=== PATIENT | male | born 1960 | race Caucasian/White ===

== ENCOUNTER → 2019-08-21 | Outpatient (CLI) | payer SELFPAY | LOC: LAB FS 15:57 | PROVIDERS: ATTEND Family Medicine | DX: R63.1 Polydipsia (principal) | CPT/HCPCS: 36415; 84588 ==

== ENCOUNTER 2019-12-20 17:23 | Inpatient (IN) | payer SELFPAY ==
[~2019-12-20] VITALS: Ht 172.7 cm; Wt 59.1 kg
--- NOTE | 2019-12-20 17:24 | ED General ---
General Stated Complaint: SOB History of Present Illness Date Seen by Provider: Dec 20, 2019 Time Seen by Provider: 17:24 Initial Comments Patient is a 59 y/o male who comes to the ER today primarily with constitutional complaints. He states he has been feeling progressively weak and shaky for many weeks. Symptoms worsened significantly over the last several days. He has excessive thirst and now feels too weak to ambulate even about his house. He does not have focal neuro complaints. No chest pain. He does c/o some dyspnea but no cough. No additional viral symptoms. No fever, chills. He does have hx of heavy tobacco use smoking one PPD. No personal hx of DM but his brother does have. 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 He does drink six beers daily but denies hx of etoh w/d symptoms with cessation. Allergies and Home Medications Allergies Coded Allergies: No Known Drug Allergies (Unverified , 12/20/19) Patient Home Medication List Home Medication List Reviewed: Yes Review of Systems Review of Systems Constitutional: chills, dizziness, malaise, weakness EENTM: no symptoms reported Respiratory: dyspnea on exertion Cardiovascular: no symptoms reported Gastrointestinal: loss of appetite Genitourinary: no symptoms reported Musculoskeletal: no symptoms reported Skin: no symptoms reported Psychiatric/Neurological: Tremors, Weakness All Other Systems Reviewed Negative Unless Noted: Yes Physical Exam Vital Signs Vital Signs - First Documented 12/20/19 17:46 Temp 37.4 Pulse 67 Resp 17 B/P (MAP) 155/74 (101) Pulse Ox 100 Capillary Refill : Height, Weight, BMI Height: '" Weight: lbs. oz. kg; BMI Method: General Appearance: Other (thin, ill-appearing male who is tremulous) Eyes: Bilateral Eye Normal Inspection HEENT: PERRL/EOMI, Normal ENT Inspection Neck: Supple Respiratory: Other (few scattered wheezes but no significant decrease air flow.) Cardiovascular: Regular Rate, Rhythm, No Murmur Gastrointestinal: Non Tender, Soft Extremity: Normal Capillary Refill, Other (clubbing of fingernails) Neurologic/Psychiatric: Alert, Oriented x3, Normal Mood/Affect, lapel baster II-XII Norm as Tested, Other (tremulous) Skin: Normal Color Focused Exam Lactate Level 12/20/19 17:53: Lactic Acid Level 7.19*H Lactic Acid Level Laboratory Tests Test 12/20/19 17:53 Lactic Acid Level 7.19 MMOL/L (0.50-2.00) *H Progress/Results/Core Measures Suspected Sepsis SIRS Temperature: Pulse: Respiratory Rate: Laboratory Tests 12/20/19 17:53: White Blood Count 11.1H Blood Pressure / Mean: 12/20/19 17:53: Lactic Acid Level 7.19*H Laboratory Tests 12/20/19 17:53: Creatinine 0.98, Platelet Count 187, Total Bilirubin 0.6 Results/Orders Lab Results Laboratory Tests Test 12/20/19 17:53 12/20/19 18:10 Range/Units White Blood Count 11.1 H 4.3-11.0 10^3/uL Red Blood Count 4.08 L 4.35-5.85 10^6/uL Hemoglobin 15.3 13.3-17.7 G/DL Hematocrit 42 40-54 % Mean Corpuscular Volume 103 H 80-99 FL Mean Corpuscular Hemoglobin 38 H 25-34 PG Mean Corpuscular Hemoglobin Concent 37 H 32-36 G/DL Red Cell Distribution Width 12.8 10.0-14.5 % Platelet Count 187 130-400 10^3/uL Mean Platelet Volume 10.0 7.4-10.4 FL Neutrophils (%) (Auto) 81 H 42-75 % Lymphocytes (%) (Auto) 12 12-44 % Monocytes (%) (Auto) 6 0-12 % Eosinophils (%) (Auto) 0 0-10 % Basophils (%) (Auto) 1 0-10 % Neutrophils # (Auto) 8.9 H 1.8-7.8 X 10^3 Lymphocytes # (Auto) 1.4 1.0-4.0 X 10^3 Monocytes # (Auto) 0.7 0.0-1.0 X 10^3 Eosinophils # (Auto) 0.0 0.0-0.3 10^3/uL Basophils # (Auto) 0.1 0.0-0.1 10^3/uL Sodium Level 130 L 135-145 MMOL/L Potassium Level 4.0 3.6-5.0 MMOL/L Chloride Level 88 L 98-107 MMOL/L Carbon Dioxide Level 18 L 21-32 MMOL/L Anion Gap 24 H 5-14 MMOL/L Blood Urea Nitrogen 16 7-18 MG/DL Creatinine 0.98 0.60-1.30 MG/DL Estimat Glomerular Filtration Rate > 60 BUN/Creatinine Ratio 16 Glucose Level 59 *L 70-105 MG/DL Lactic Acid Level 7.19 *H 0.50-2.00 MMOL/L Calcium Level 9.7 8.5-10.1 MG/DL Corrected Calcium 8.5-10.1 MG/DL Magnesium Level 1.8 1.6-2.4 MG/DL Total Bilirubin 0.6 0.1-1.0 MG/DL Aspartate Amino Transf (AST/SGOT) 126 H 5-34 U/L Alanine Aminotransferase (ALT/SGPT) 61 H 0-55 U/L Alkaline Phosphatase 67 40-136 U/L Troponin I < 0.30 <0.30 NG/ML Pro-B-Type Natriuretic Peptide 114.7 H <75.0 PG/ML Total Protein 7.3 6.4-8.2 GM/DL Albumin 4.8 H 3.2-4.5 GM/DL Serum Alcohol 77 H <10 MG/DL Urine Color YELLOW Urine Clarity CLEAR Urine pH 6.0 5-9 Urine Specific [place] 1.020 1.016-1.022 Urine Protein 2+ H NEGATIVE Urine Glucose (UA) NEGATIVE NEGATIVE Urine Ketones 2+ H NEGATIVE Urine Nitrite NEGATIVE NEGATIVE Urine Bilirubin NEGATIVE NEGATIVE Urine Urobilinogen 0.2 < = 1.0 MG/DL Urine Leukocyte Esterase NEGATIVE NEGATIVE Urine RBC (Auto) TRACE H NEGATIVE Urine RBC NONE /HPF Urine WBC RARE /HPF Urine Squamous Epithelial Cells RARE /HPF Urine Crystals NONE /LPF Urine Bacteria NEGATIVE /HPF Urine Casts PRESENT /LPF Urine Hyaline Casts 0-2 H /LPF Urine Mucus NEGATIVE /LPF Urine Culture Indicated NO My Orders Orders - LEIGHTON ROBLES DO Ed Iv/Invasive Line Start (12/20/19 17:47) Cbc With Automated Diff (12/20/19 17:47) Comprehensive Metabolic Panel (12/20/19 17:47) Lactic Acid Analyzer (12/20/19 17:47) Troponin I Fs (12/20/19 17:47) Ekg Tracing (12/20/19 17:47) Chest 1 View Ap/Pa Only (12/20/19 17:47) Thyroid Stimulating Hormone (12/20/19 17:48) Urinalysis (12/20/19 17:49) Ns Iv 1000 Ml (Sodium Chloride 0.9%) (12/20/19 18:00) Probnp Fs (12/20/19 18:01) Ed Iv/Invasive Line Start (12/20/19 18:22) D5 Ns 1000 Ml Iv Solution (Dextrose 5%/0 (12/20/19 18:30) Alcohol (12/20/19 18:29) Magnesium (12/20/19 18:41) Ns Iv 1000 Ml (Sodium Chloride 0.9%) (12/20/19 19:00) Vital Signs/I&O 12/20/19 17:46 Temp 37.4 Pulse 67 Resp 17 B/P (MAP) 155/74 (101) Pulse Ox 100 Capillary Refill : Progress Note : Time: 16:35 Progress Note Patient is seen and examined. No chest pain. Pt seems mildly dyspneic, particularly with ambulation from the w/r. Improves while at rest. 18:45: Results are reviewed and discussed with the patient. X-rays consistent with COPD but no acute infection. No leukocytosis. Patient has significant derangement of BMP with depressed CO2 and anion gap of 24. Blood glucose level however was low. Patient is noted to have ketones in urine. His presentation is consistent with alcoholic ketoacidosis. His lactic acid is 7.1. During the ED course, the patient is ordered to have a total of 2 L of normal saline as well as 1 L of D5NS as bolus fluids. I spoke to Dr. Herrera who is agreeable to admit the patient to [facility]. Patient is agreeable to the admission plan of care. We will continue aggressive hydration during the ED course. Troponin was not elevated and EKG is normal. Patient takes metoprolol 25 mg daily for control blood pressure. He does not use inhaled type medications for COPD. Despite elevated lactate today, there is no evidence for acute infectious process on his workup. No antibiotics are indicated at this time. ECG Initial ECG Impression Date: Dec 20, 2019 Initial ECG Impression Time: 17:55 Initial ECG Rhythm: Normal Sinus, S.Tej Departure Communication (Admissions) Time/Spoke to Admitting Phy: 18:45 Dr. Herrera Impression Primary Impression: Alcoholic ketoacidosis Disposition: ADMITTED INPATIENT Condition: Improved Admissions Decision to Admit Reason: Admit from ER (General) Decision to Admit/Date: Dec 20, 2019 Time/Decision to Admit Time: 18:40 Departure-Patient Inst. Referrals: SELFDAVID MD (PCP/Family) Primary Care Physician LEIGHTON ROBLES DO Dec 20, 2019 17:24
--- OUTSIDE RECORDS SUMMARY | 2019-12-20 17:28 | XMS REPORT | Continuity of Care Document ---
Author Organization Unknown Address Unknown Phone Unavailable Allergies There is no data. Medications There is no data. Problems Date Dx Coded Attending Type Code Diagnosis Diagnosed By 08/25/2019 SELF DAVID PATHAK Ot R63.1 POLYDIPSIA 12/20/2019 SELF DAVID PATHAK Ot R63.1 POLYDIPSIA Procedures There is no data. Results Test Result Range A1C - 07/21/19 16:04 HEMOGLOBIN A1c 5.6 % of total Hgb <5.7 INSULIN LEVEL - 07/21/19 16:05 INSULIN 5.5 uIU/mL NRG VITAMIN B12 - 08/21/19 15:59 VITAMIN B12 373 pg/mL 200-1100 TSH - 08/21/19 15:59 TSH 1.07 mIU/L 0.40-4.50 VITAMIN B1 (THIAMINE) - 08/21/19 15:59 VITAMIN B1 (THIAMINE), BLOOD, LC/MS/MS 126 nmol/L 78-185 ANTIDIURETIC HORMONE - 08/21/19 16:10 ANTIDIURETIC HORMONE/VASOPRESS <0.5 0.0-6.9 Encounters ACCT No. Visit Date/Time Discharge Status Pt. Type Provider Facility Loc./Unit Complaint [id number] 12/02/2019 13:30:00 12/02/2019 23:59: 59 CLS Outpatient SELFDAVID [facility] [id number] 08/21/2019 14:30:00 Document Registration [id number] 07/21/2019 14:15:00 Document Registration [id number] 12/20/2019 17:24:00 17:24:00 CAN Preadmit LEIGHTON ROBLES DO [facility] ER FS SOB [id number] 08/21/2019 15:57:00 020 23:59:59 CLS Outpatient SELF DAVID PATHAK [facility] LAB FS EXCESSIVE THIRST
--- NOTE | 2019-12-20 17:36 | NUR ---
Per registration staff, patient's came in to register patient. Patient's stated that patient was coming to the ED via EMS. Local EMS has received no calls for this patient. Registration staff states left to go home, stated that her cell phone battery was empty.
[2019-12-20 18:01] LABS: BASOPHILS % (AUTO) 1 % (0-10); EOSINOPHILS % (AUTO) 0 % (0-10); HEMATOCRIT 42 % (40-54); HEMOGLOBIN 15.3 G/DL (13.3-17.7); LYMPHOCYTES % (AUTO) 12 % (12-44); MEAN CORPUSCULAR HEMOGLOBIN 38 PG (25-34); MEAN CORPUSCULAR HGB CONC 37 G/DL (32-36); MEAN CORPUSCULAR VOLUME 103 FL (80-99); MONOCYTES % (AUTO) 6 % (0-12); NEUTROPHILS % (AUTO) 81 % (42-75); PLATELET COUNT 187 10^3/uL (130-400); RED CELL DISTRIBUTION WIDTH 12.8 % (10.0-14.5); WHITE BLOOD COUNT 11.1 10^3/uL (4.3-11.0)
[2019-12-20 18:02] LABS: BASOPHILS # (AUTO) 0.1 10^3/uL (0.0-0.1); LYMPHOCYTES # (AUTO) 1.4 X 10^3 (1.0-4.0); MONOCYTES # (AUTO) 0.7 X 10^3 (0.0-1.0); NEUTROPHILS # (AUTO) 8.9 X 10^3 (1.8-7.8)
--- OUTSIDE RECORDS SUMMARY | 2019-12-20 18:05 | XMS REPORT | Continuity of Care Document ---
Author Organization Unknown Address Unknown Phone Unavailable Allergies There is no data. Medications There is no data. Problems Date Dx Coded Attending Type Code Diagnosis Diagnosed By 08/25/2019 SELF DAVID PATHAK Ot R63.1 POLYDIPSIA 12/20/2019 DAVID VAUGHN MD, Ot R63.1 POLYDIPSIA Procedures There is no [...] Status Pt. Type Provider Facility Loc./Unit Complaint [id number] 12/02/2019 13:30:00 12/02/2019 23:59: 59 CLS Outpatient DAVID VAUGHN [facility] [id number] 08/21/2019 14:30:00 Document Registration [id number] 07/21/2019 14:15:00 Document Registration [id number] 08/21/2019 15:57:00 020 23:59:59 CLS Outpatient SELF DAVID PATHAK [facility] LAB FS EXCESSIVE THIRST [id number] 12/20/2019 18:01:[address] Emergency LEIGHTON ROBLES DO [facility] ER FS SOB
[2019-12-20] MEDS: NS IV 1000 ML 1,000 ML IV SCH ×2 (18:09→21:00)
[2019-12-20 18:23] LABS: BILIRUBIN,URINE NEGATIVE (NEGATIVE); CLARITY,URINE CLEAR; COLOR,URINE YELLOW; GLUCOSE, URINE (UA) NEGATIVE (NEGATIVE); KETONES,URINE 2+ (NEGATIVE); NITRITE,URINE NEGATIVE (NEGATIVE); PROTEIN,URINE 2+ (NEGATIVE)
[2019-12-20 18:24] LABS: BACTERIA,URINE NEGATIVE /HPF; HYALINE CASTS, URINE 0-2 /LPF; LEUKOCYTE ESTERASE ,URINE NEGATIVE (NEGATIVE); SQUAMOUS EPITHELIAL CELL,UR RARE /HPF; WBC,URINE RARE /HPF
[2019-12-20 18:26] LABS: BUN/CREATININE RATIO 16; CARBON DIOXIDE 18 MMOL/L (21-32); CHLORIDE 88 MMOL/L (98-107); CREATININE SERUM 0.98 MG/DL (0.60-1.30); GFR ESTIMATED > 60; SODIUM 130 MMOL/L (135-145)
[2019-12-20 18:27] LABS: ALANINE AMINOTRANSFERASE 61 U/L (0-55); ALKALINE PHOSPHATASE 67 U/L (40-136); BILIRUBIN,TOTAL 0.6 MG/DL (0.1-1.0); CALCIUM 9.7 MG/DL (8.5-10.1); GLUCOSE 59 MG/DL (70-105); TOTAL PROTEIN 7.3 GM/DL (6.4-8.2)
[2019-12-20 18:28] LABS: ALBUMIN 4.8 GM/DL (3.2-4.5)
[2019-12-20] MEDS ORDERED: NS IV 1000 ML 1,000 ML IV SCH ×2 (18:30→19:00)
[2019-12-20] MEDS: D5 NS 1000 ML IV SOLUTION 1,000 ML IV SCH (18:32)
--- NOTE | 2019-12-20 18:42 | Diagnostic Imaging Report ---
INDICATION: Shortness of breath. COMPARISON: None. EXAMINATION: Single view of the chest was obtained. FINDINGS: Hyperinflation is seen, compatible with COPD. No obvious infiltrate is identified. There is no pneumothorax or large effusion. The heart is normal. Osseous structures are age-appropriate. IMPRESSION: COPD without acute infiltrate. Dictated by: Dictated on workstation # [id number]
[2019-12-20 18:53] LABS: MAGNESIUM 1.8 MG/DL (1.6-2.4)
[2019-12-20] MEDS ORDERED: RT-ALBUTEROL/IPRATROPIUM 3 ML (DUONEB) VIAL INH ONE (19:15)
[2019-12-20] MEDS ORDERED: AZITHROMYCIN 250 MG TAB (ZITHROMAX) PO ONE (19:15)
--- NOTE | 2019-12-20 19:35 | NUR ---
ems here report and care given
[2019-12-20] MEDS ORDERED: NS IV 1000 ML 1,000 ML ONE (20:59)
[2019-12-20 22:30] VITALS: BP 160/78
--- NOTE | 2019-12-20 22:30 | NUR ---
Pt admitted to room 407-1, with an admitting diagnosis of Alcoholic Ketoacidosis, on 12/20/19 from [facility] via EMS, accompanied by [facility]. LALY NORRIS introduced to surroundings, call light, bed controls, phone, TV, temperature control, lights, meal times, smoking policy, visitor policy, side rail policy, bathrooms and showers. Patient Rights given to patient in the handbook. LALY NORRIS verbalizes understanding that [facility] is not responsible for the loss or damage to any personal effects or valuables that are kept in the patients posession during their hospitalization. LALY NORRIS verbalizes understanding of Interdisciplinary Patient Education. Patient was informed about the Rapid Response Team and its purpose.
--- OUTSIDE RECORDS SUMMARY | 2019-12-20 22:32 | XMS REPORT | Continuity of Care Document ---
Author Organization Unknown Address Unknown Phone Unavailable Allergies There is no data. Medications There is no data. Problems Date Dx Coded Attending Type Code Diagnosis Diagnosed By 08/25/2019 DAVID VAUGHN MD Ot R63.1 POLYDIPSIA 12/20/2019 DAVID VAUGHN MD, [...] Status Pt. Type Provider Facility Loc./Unit Complaint [id number] 12/02/2019 13:30:00 12/02/2019 23:59: 59 CLS Outpatient DAVID VAUGHN [facility] [id number] 08/21/2019 14:30:00 Document Registration [id number] 07/21/2019 14:15:00 Document Registration [id number] 08/21/2019 15:57:00 020 23:59:59 CLS Outpatient DAVID VAUGHN MD [facility] LAB FS EXCESSIVE THIRST [id number] 12/20/2019 22:27:[address] Inpatient PIA TOTH MD [facility] 4TH SOB
[2019-12-21] VITALS (7 sets, daily range): BP systolic 99–200; BP diastolic 66–100
[2019-12-21] MEDS ORDERED: ONDANSETRON 4 MG/2 ML (SDV) Z0FRAN IV PRN (00:15)
[2019-12-21] MEDS ORDERED: RT-ALBUTEROL SULF 2.5 MG/3 ML PRE-MIX VIAL IH PRN (00:15)
[2019-12-21] MEDS ORDERED: ACETAMINOPHEN 325 MG TABLET PO PRN (00:15)
[2019-12-21] MEDS: D5 NS 1000 ML IV SOLUTION 1,000 ML IV SCH (05:03)
[2019-12-21] MEDS: NS IV 1000 ML 1,000 ML IV SCH ×2 (05:03→05:12)
[2019-12-21 05:10] LABS: BASOPHILS % (AUTO) 0 % (0-10); EOSINOPHILS % (AUTO) 1 % (0-10); HEMATOCRIT 39 % (40-54); HEMOGLOBIN 13.9 G/DL (13.3-17.7); LYMPHOCYTES # (AUTO) 0.9 X 10^3 (1.0-4.0); LYMPHOCYTES % (AUTO) 21 % (12-44); MEAN CORPUSCULAR HEMOGLOBIN 36 PG (25-34); MEAN CORPUSCULAR HGB CONC 36 G/DL (32-36); MEAN CORPUSCULAR VOLUME 102 FL (80-99); MEAN PLATELET VOLUME 9.9 FL (7.4-10.4); MONOCYTES # (AUTO) 0.5 X 10^3 (0.0-1.0); MONOCYTES % (AUTO) 11 % (0-12); NEUTROPHILS # (AUTO) 2.9 X 10^3 (1.8-7.8); NEUTROPHILS % (AUTO) 67 % (42-75); PLATELET COUNT 155 10^3/uL (130-400); RED CELL DISTRIBUTION WIDTH 12.9 % (10.0-14.5); WHITE BLOOD COUNT 4.4 10^3/uL (4.3-11.0)
[2019-12-21 05:30] LABS: ALANINE AMINOTRANSFERASE 57 U/L (0-55); ALBUMIN 4.1 GM/DL (3.2-4.5); ALKALINE PHOSPHATASE 53 U/L (40-136); BILIRUBIN,TOTAL 0.8 MG/DL (0.1-1.0); BUN/CREATININE RATIO 16; CALCIUM 8.6 MG/DL (8.5-10.1); CARBON DIOXIDE 22 MMOL/L (21-32); CHLORIDE 105 MMOL/L (98-107); GFR ESTIMATED > 60; POTASSIUM 4.4 MMOL/L (3.6-5.0); SODIUM 136 MMOL/L (135-145); TOTAL PROTEIN 6.4 GM/DL (6.4-8.2)
[2019-12-21 05:35] LABS: GLUCOSE 58 MG/DL (70-105)
--- NOTE | 2019-12-21 06:27 | NUR ---
LAB CALLED AND REPORTED CRITICAL GLUCOSE LEVEL OF 58. THIS RN GAVE PT OJ, CHEESE, AND CRACKERS, AND NOTIFIED DR. TOTH OF CRITICAL LAB. BLOOD SUGAR RECHECKED AND IS 168 AT THIS TIME.
[2019-12-21] MEDS ORDERED: MTP25TSR PO (06:52)
[2019-12-21] MEDS ORDERED: meTOprolol 5 MG/5 ML (LOPRESSOR) VIAL IV ONE (11:45)
[2019-12-21] MEDS ORDERED: LORazepam 0.5 MG (ATIVAN) TABLET PO ONE (12:15)
--- NOTE | 2019-12-21 13:11 | Discharge Summary ---
Discharge Summary Hospital Course Was the Problem List Reviewed?: Yes Final Diagnosis: Lactic acidosis secondary to alcoholism Hospital Course Date of Admission: Dec 20, 2019 at 22:27 Admission Diagnosis : Family Physician/Provider: Candido Stockton MD Date of Discharge: 12/21/19 Discharge Diagnosis: [ ]12/21/19 Hospital Course: Patient was admitted with weakness and tremulousness. He was given aggressive IV fluid rehydration with resolution of the lactic acidosis. The patient has remained afebrile but slight Trell hypertensive as he became more anxious about about not having a cigarette drink. Beta dana was restarted and Ativan given for anxiety. The patient was adamant about going home felt much better and understood that curtailing his cigarettes and alcohol would benefit him. [ ] Labs and Pending Lab Test: Laboratory Tests 12/20/19 17:53: White Blood Count 11.1H, Red Blood Count 4.08L, Hemoglobin 15.3, Hematocrit 42, Mean Corpuscular Volume 103H, Mean Corpuscular Hemoglobin 38H, Mean Corpuscular Hemoglobin Concent 37H, Red Cell Distribution Width 12.8, Platelet Count 187, Mean Platelet Volume 10.0, Neutrophils (%) (Auto) 81H, Lymphocytes (%) (Auto) 12, Monocytes (%) (Auto) 6, Eosinophils (%) (Auto) 0, Basophils (%) (Auto) 1, Neutrophils # (Auto) 8.9H, Lymphocytes # (Auto) 1.4, Monocytes # (Auto) 0.7, Eosinophils # (Auto) 0.0, Basophils # (Auto) 0.1, Sodium Level 130L, Potassium Level 4.0, Chloride Level 88L, Carbon Dioxide Level 18L, Anion Gap 24H, Blood Urea Nitrogen 16, Creatinine 0.98, Estimat Glomerular Filtration Rate > 60, BUN/Creatinine Ratio 16, Glucose Level 59*L, Lactic Acid Level 7.19*H, Calcium Level 9.7, Corrected Calcium , Magnesium Level 1.8, Total Bilirubin 0.6, Aspar guaman Amino Transf (AST/SGOT) 126H, Alanine Aminotransferase (ALT/SGPT) 61H, Alkaline Phosphatase 67, Troponin I < 0.30, Pro-B-Type Natriuretic Peptide 114.7H, Total Protein 7.3, Albumin 4.8H, Thyroid Stimulating Hormone (TSH) 0.59, Serum Alcohol 77H 12/20/19 18:10: Urine Color YELLOW, Urine Clarity CLEAR, Urine pH 6.0, Urine Specific [place] 1.020, Urine Protein 2+H, Urine Glucose (UA) NEGATIVE, Urine Ketones 2+H, Urine Nitrite NEGATIVE, Urine Bilirubin NEGATIVE, Urine Urobilinogen 0.2, Urine Leukocyte Esterase NEGATIVE, Urine RBC (Auto) TRACEH, Urine RBC NONE, Urine WBC RARE, Urine Squamous Epithelial Cells RARE, Urine Crystals NONE, Urine Bacteria NEGATIVE, Urine Casts PRESENT, Urine Hyaline Casts 0-2H, Urine Mucus NEGATIVE, Urine Culture Indicated NO 12/21/19 04:52: White Blood Count 4.4, Red Blood Count 3.82L, Hemoglobin 13.9, Hematocrit 39L, Mean Corpuscular Volume 102H, Mean Corpuscular Hemoglobin 36H, Mean Corpuscular Hemoglobin Concent 36, Red Cell Distribution Width 12.9, Platelet Count 155, Mean Platelet Volume 9.9, Neutrophils (%) (Auto) 67, Lymphocytes (%) (Auto) 21, Monocytes (%) (Auto) 11, Eosinophils (%) (Auto) 1, Basophils (%) (Auto) 0, Neutrophils # (Auto) 2.9, Lymphocytes # (Auto) 0.9L, Monocytes # (Auto) 0.5, Eosinophils # (Auto) 0.0, Basophils # (Auto) 0.0, Sodium Level 136, Potassium Level 4.4, Chloride Level 105, Carbon Dioxide Level 22, Anion Gap 9, Blood Urea Nitrogen 13, Creatinine 0.80, Estimat Glomerular Filtration Rate > 60, BUN/Creatinine Ratio 16, Glucose Level 58*L, Lactic Acid Level 0.82, Calcium Level 8.6, Corrected Calcium 8.5, Total Bilirubin 0.8, Aspartate Amino Transf (AST/SGOT) 84H, Alanine Aminotransferase (ALT/SGPT) 57H, Alkaline Phosphatase 53, Total Protein 6.4, Albumin 4.1 Home Meds Active Reported Metoprolol Succinate 25 Mg Tab.er.24h 25 Mg PO DAILY Assessment/Pt Instructions Lactic acidosis secondary to excessive alcohol intake COPD Tobaccoism Hypoglycemia Hypertension Tremors-probably related to tobacco and alcohol withdrawal Discharge Instructions Discharge Diet: Eat Small Frequent Meals Activity as Tolerated: Yes Consultations None Discharge Physical Examination General Appearance: Alert, Oriented X3, Other (Shaky) HEENT: PERRLA Respiratory: Other (Expiratory rhonchi and scattered wheeze) Cardiovascular: Regular Rate, Normal S1, Normal S2 Abdominal: Normal Bowel Sounds, Soft Extremities: Other (Clubbing) Skin: No Rashes Neuro: Normal Gait, Normal Speech, Strength at 5/5 X4 Ext, Other (Resting tremor) Psych/Mental Status: Other (Anxious) Allergies: Coded Allergies: No Known Drug Allergies (Unverified , 12/20/19) Copy Copies To 1: SELF,CANDIDO PATHAK Discharge Summary Date of Admission Dec 20, 2019 at 22:27 Date of Discharge Clinical Quality Measures DVT/VTE Risk/Contraindication: Risk Factor Score Per Nursin RFS Level Per Nursing on Admit: 4+=Very High PIA TOTH MD Dec 21, 2019 13:11
--- NOTE | 2019-12-22 09:33 | NUR ---
Received dietary consult for MST Score. Note pt has discharged at this time. Sandra Salamanca, MS, RD, LD
== END 2019-12-21 14:35 | disposition home or self-care (01) | DRG 641 ==
LOC: EDUNIT# 17:23 → ER FS 17:24 → 4TH 22:27
PROVIDERS: ADMIT Internal Medicine; ATTEND Internal Medicine
DX: E87.2 Acidosis (principal); F10.239 Alcohol dependence with withdrawal, unspecified; J44.9 Chronic obstructive pulmonary disease, unspecified; F17.210 Nicotine dependence, cigarettes, uncomplicated; Z90.5 Acquired absence of kidney; E16.2 Hypoglycemia, unspecified; I10 Essential (primary) hypertension
CPT/HCPCS: 36415; 71045; 80053; 80320; 81000; 83605; 83735; 83880; 84443; 84484; 85025; 93005